=== PATIENT | female | born 1975 | race Caucasian/White ===

== ENCOUNTER 2017-03-06 20:17 | Emergency (ER) | payer OTHER ==
--- NOTE | 2017-03-06 20:43 | ED Physician Documentation ---
Low Back Pain - HISTORIAN Historian: patient - HPI Stated Complaint: left back pain Chief Complaint: Low Back Pain/ Injury History: back pain Onset: days ago (yesterday) Duration: continues in ED, worse Recent Injury: No (no precipitating factor noted) Other Injuries: other (none) Severity: moderate Quality: similar- prior back pain, other (intense achy with sharp component) Associated Symptoms: denies: fever, chills Worsened By:: other (laying and sitting) Further Comments: yes - ROS CONST: no problems - PAST HX Past History: other (hip problems, chronic) Surgeries/Procedures: hysterectomy, other (ganglion cyst, facial fractures) Allergies/Adverse Reactions: Allergies Allergy/AdvReac Type Severity Reaction Status Date / Time promethazine HCl Allergy Mild Verified 03/06/17 20:27 [From Phenergan] cyclobenzaprine HCl Allergy Verified 03/06/17 20:28 [From Flexeril] Home Medications: Ambulatory Orders Medication Instructions Recorded NK [NK] 03/06/17 - SOCIAL HX Smoking History: greater than 1 pack/day Alcohol Use: occasionally Drug Use: none - FAMILY HX Family History: other (daughter with thyroid cancer. Breast cancer) - VITAL SIGNS Vital Signs: Vital Signs Temp Pulse Resp BP Pulse Ox 98.2 F 68 15 112/61 97 03/06/17 22:40 03/06/17 22:40 03/06/17 22:40 03/06/17 22:40 03/06/17 22:40 - REVIEWED ASSESSMENTS Nursing Assessment Reviewed: Yes Vitals Reviewed: Yes Progress - Progress Progress: 2003 Toradol did not seem to help much, will give fentanyl ED Results Lab/Radiology - Orders Orders: ED Orders Category Date Time Status LUMBAR SPINE XR 2 OR 3 VIEWS [L SPINE 2 OR 3 VIEWS] [ Exams 03/06/17 Taken RAD] Stat Ketorolac Tromethamine [Toradol] Med 03/06/17 20:53 Discontinued 60 mg IM NOW ONE fentaNYL CITRATE/PF [Duragesic] Med 03/06/17 22:05 Discontinued 50 mcg IM NOW ONE traMADol HCL [Ultram] Med 03/06/17 22:28 Discontinued 100 mg .ROUTE .STK-MED ONE traMADol HCL [Ultram] Med 03/06/17 22:28 Discontinued 100 mg PO NOW ONE Low Back Pain/Injury - Physical Exam General Appearance: alert, moderate distress Neck: non-tender, painless ROM, trachea midline. No: vertebral point-tendernes Resp/CVS: chest non-tender, breath sounds nml, heart sounds nml, no resp. distress, lungs clear, reg. rate & rhythm Abdomen: non-tender, no organomegaly, no pulsatile mass, hepatomegaly Back: muscle spasm, other (tenderness to the left lateral into the buttocks) Straight Leg Raising: Positive Left Neuro/Psych: oriented x3, motor nml, sensation nml Skin: warm/dry Extremities: non-tender. No: normal range of motion (decreas ROM o fthe hip) Discharge Clincal Impression: Sciatic leg pain Referrals: Beth Barron PRN [Primary Care Provider] - 2 Days Additional Instructions: Try a cool or /and warm compress ot the area, do back exercises. Take tramadol as needed for pain. Continue taking Ibuprofen or Aleve on a regular basis with food. If not better in 4-5 days to follow-up with your primary care provider or return to the ED. Home Medications: Ambulatory Orders NK [NK] 03/06/17 Condition: Stable Disposition: 01 HOME, SELF-CARE Decision to Admit: NO Date of Decison to Admit: 03/06/17 Decision Time: 21:21
[2017-03-06] MEDS: KETOROLAC TROMETHAMINE 60 MG/2 ML VIAL IM ONE (21:05)
[2017-03-06] MEDS: fentaNYL CITRATE/PF 100 MCG/ 2ML AMP IM ONE (22:15)
[2017-03-06] MEDS ORDERED: traMADol HCL 50 MG TABLET ONE (22:28)
[2017-03-06] MEDS: traMADol HCL 50 MG TABLET PO ONE (22:32)
[2017-03-06 22:57] VITALS: BP 112/61
--- NOTE | 2017-03-07 06:49 | Diagnostic Imaging Report ---
YOSVANY MENESES [facility] [address] [facility] [address] [address] Report Submission Date: Mar 06, 2017 9:31:04 PM CDT Patient Study Name: CRISTI CHRISTINE Date: Mar 06, 2017 9:03:52 PM CDT Modality Type: CR Gender: F Description: SPINE : 73 Institution: [facility] [place] [facility] Physician: YOSVANY MENESES Lumbar spine 3 views Date of Exam: March 06, 2017. History: LUMBAR SCIATICA PAIN, PAIN MOSTLY ON LEFT SIDE (Hx) Findings: The lumbar spine alignment is normal. The lumbar vertebral bodies are of normal height and the intervertebral disc spaces are of average width. There is no evidence of compression deformity or subluxation. The lumbosacral alignment is maintained. There is gaseous distention of the descending and sigmoid colon. Impression: No evidence of lumbar spine fracture or subluxation. Electronically signed on Mar 06, 2017 9:31:04 PM CDT by: Celena CANALES
== END 2017-03-06 22:40 | disposition home or self-care (01) ==
LOC: ED 20:17
DX: M54.30 Sciatica, unspecified side (principal)
CPT/HCPCS: 72100; J1885; J3010; 96372; 99283

== ENCOUNTER 2017-11-04 20:24 | Emergency (ER) | payer OTHER ==
--- NOTE | 2017-11-04 20:41 | ED Physician Documentation ---
Hip Injury/Pain - HISTORIAN Historian: patient - HPI Stated Complaint: left hip pain Chief Complaint: Hip Pain Onset: days ago (5) Where: home Severity: mild Duration: worse Context: denies: fall, tripped, slipped, lost balance Other Injuries: none Further Comments: yes (She states she has consistent pain in right hip. She states the last 5 days she has left hip pain. Denies any injury. She states the pain is in her hip and at times moves to the lateral side of her hip. Worse with sitting. She has tried OTC meds and heat with no relief. Denies any loss of control of bowel or bladder. No numbess) - ROS CONST: no problems RESP: denies: shortness of breath EYES/ENT: none MS/SKIN/LYMPH: denies: neck pain, ankle swelling, rash NEURO/PSYCH: denies: confusion, anxiety, depression - PAST HX Cardiac Disease: none PE Risk Factors: none Surgeries/Procedures: other (hysterectomy ) Immunizations: UTD Allergies/Adverse Reactions: Allergies Allergy/AdvReac Type Severity Reaction Status Date / Time promethazine HCl Allergy Mild Verified 11/04/17 20:32 [From Phenergan] cyclobenzaprine HCl Allergy Verified 11/04/17 20:32 [From Flexeril] Home Medications: Ambulatory Orders Medication Instructions Recorded NK [NK] 03/06/17 - SOCIAL HX Smoking History: cigarettes Alcohol Use: none Drug Use: none - FAMILY HX Family History: No - VITAL SIGNS Vital Signs: Vital Signs Temp Pulse Resp BP Pulse Ox 98.0 F 76 16 125/76 100 11/04/17 20:25 11/04/17 20:25 11/04/17 20:25 11/04/17 20:25 11/04/17 20:25 - REVIEWED ASSESSMENTS Nursing Assessment Reviewed: Yes Vitals Reviewed: Yes Progress - Progress Progress: 2127: Pain is "some" better. She is tearful due to frustration. She does have a active workmans comp issue. DG ED Results Lab/Radiology - Radiology Radiology Impressions: AP pelvis and left hip 2 views History: Severe left hip pain Findings: The osseous pelvis and proximal left femur are unremarkable without fracture, dislocation, arthropathy, or focal bone lesion. Electronically signed on Nov 04, 2017 9:12:20 PM CDT by: Yosi Yusuf - Orders Orders: ED Orders Category Date Time Status LT HIP 2VIEW COMPLETE [RAD] Stat Exams 11/04/17 Ordered PELVIS AP 1 OR 2 VIEWS [RAD] Stat Exams 11/04/17 Ordered Baclofen [Lioresal] Med 11/04/17 22:00 Ordered 40 mg PO QID Ketorolac Tromethamine [Toradol] Med 11/04/17 20:47 Discontinued 60 mg IM NOW ONE methylPREDNISolone SOD SUCC [Solu-MEDROL] Med 11/04/17 20:47 Discontinued 40 mg IM NOW ONE traMADol HCL [Ultram] Med 11/04/17 21:26 Once 100 mg PO NOW ONE Hip Injury/Pain Physical Exam - EXAM General Appearance: no acute distress, alert Extremities: non-tender, no pedal edema, no obvious injury, hip pain on leg movement, hip tenderness Respiratory: chest non-tender, breath sounds nml CVS: reg rate & rhythm, heart sounds normal, equal pulses, no murmur Back: non-tender, painless ROM. No: vertebral point-tendernes Skin: warm/dry, normal color Neuro/Psych: oriented x3, neuro grossly intact, mood/affect nml Discharge Clincal Impression: Hip pain, left Referrals: Primary Doctor,No [Primary Care Provider] - 2 Days Additional Instructions: 1. Rest 2. Follow up with PCP 3. Tramadol 50 mg take 1 by mouth every 8 hours as needed for pain 4. Medrol Dose pack take as directed 5. baclofen 20 mg take 1 by mouth every 12 hours as needed for pain 6. Return to ER for any concerns Condition: Stable Disposition: 01 HOME, SELF-CARE Decision to Admit: NO Date of Decison to Admit: 11/04/17 Decision Time: 21:33
[2017-11-04] MEDS ORDERED: KETOROLAC TROMETHAMINE 60 MG/2 ML VIAL IM ONE (20:47)
[2017-11-04] MEDS ORDERED: methylPREDNISolone SOD SUCC 40 MG/ML VIAL IM ONE (20:47)
[2017-11-04] MEDS ORDERED: traMADol HCL 50 MG TABLET PO ONE (21:26)
[2017-11-04 21:44] VITALS: BP 125/79
[2017-11-04] MEDS ORDERED: BACLOFEN 10 MG TABLET PO SCH (22:00)
--- NOTE | 2017-11-05 06:05 | Diagnostic Imaging Report ---
TAYLOR GUILLERMO [facility] [address] [facility] [address] [place], [place]. [address] Report Submission Date: Nov 04, 2017 9:12:20 PM CDT Patient Study Name: CRISTI CHRISTINE Date: Nov 04, 2017 8:53:45 PM CDT Modality Type: DX Gender: F Description: PELVIS : 73 Institution: [facility] Physician: TAYLOR GUILLERMO AP pelvis and left hip 2 views History: Severe left hip pain Findings: The osseous pelvis and proximal left femur are unremarkable without fracture, dislocation, arthropathy, or focal bone lesion. Electronically signed on Nov 04, 2017 9:12:20 PM CDT by: Yosi CANALES
--- NOTE | 2017-11-05 06:05 | Diagnostic Imaging Report ---
TAYLOR GUILLERMO [facility] [address] [facility] [address], [place]. [address] Report Submission Date: Nov 04, 2017 9:12:20 PM CDT Patient Study Name: CRISTI CHRISTINE Date: Nov 04, 2017 8:53:45 PM CDT Modality Type: DX Gender: F Description: PELVIS : 73 Institution: [facility] Physician: TAYLOR GUILLERMO AP pelvis and left hip 2 views History: Severe left hip pain Findings: The osseous pelvis and proximal left femur are unremarkable without fracture, dislocation, arthropathy, or focal bone lesion. Electronically signed on Nov 04, 2017 9:12:20 PM CDT by: Yosi CANALES
== END 2017-11-04 21:38 | disposition home or self-care (01) ==
LOC: ED 20:24
DX: M25.552 Pain in left hip (principal)
CPT/HCPCS: 72170; 73502; J1885; J2920; 99283; J1030

== ENCOUNTER 2017-12-14 09:37 | Outpatient (CLI) | payer OTHER ==
[2017-12-14 09:51] LABS: MEAN CORPUSCULAR HEMOGLOBIN 32.3 pg (28.0-34.0); MEAN CORPUSCULAR VOLUME 98.3 fl (80.0-100.0)
[2017-12-14 10:21] LABS: eGFR (African) > 60; eGFR (Non-African) > 60
== END 2017-12-14 09:40 ==
LOC: LAB 09:37
PROVIDERS: ATTEND Physician Assistant
DX: R53.83 Other fatigue (principal)
CPT/HCPCS: 36415; 80053; 82652; 84439; 84443; 84481; 85027